=== PATIENT | female | born 1940 | race Caucasian/White ===

== ENCOUNTER 2018-11-04 10:03 | Observation (INO) | payer OTHER ==
--- OUTSIDE RECORDS SUMMARY | 2018-11-04 11:01 | XMS REPORT | Clinical Summary ---
:1940 Author Organization [facility] Address [address] [place] [address] Care Team Providers Name Role Phone Kayden Costa MD Primary Care Provider Allergies Active Allergy Reactions Severity Noted Date Comments Adhesive Other (See Comments) 02/26/2016 Latex tape caused blisters Clindamycin Other (See Comments), Low 02/26/2016 Flushing and chills Rash Erythromycin Nausea And Vomiting, Low 02/26/2016 Vomited blood Other (See Comments), Rash Erythromycin Base 02/26/2016 vomited blood many years ago Latex Other (See Comments) Medium 02/26/2016 Other reaction(s): Blister Blisters with prolonged exposure Lincomycin 02/26/2016 Chills and redness on face. Tetracycline GI Intolerance High 02/26/2016 Tetracycline Hcl GI Bleeding 02/26/2016 Tetracyclines Hives, Other (See 02/26/2016 Joint swelling, rashes Comments), Swelling Medications Medication Sig Dispensed Refills Start Date End Date Status calcium carbonate Take 600 Units 0 Active (OS-DOROTHEA) 600 mg (1,500 by mouth. mg) tablet celecoxib (CeleBREX) 200 TAKE 1 CAPSULE 0 08/14/2014 Active MG capsule DAILY esomeprazole (NexIUM) 40 Take 40 mg by 0 09/20/2014 Active MG capsule mouth. eszopiclone (LUNESTA) 3 Take one tab by 0 03/21/2014 Active mg tablet mouth nightly hydroxychloroquine TAKE 1 TABLET 0 12/18/2014 Active (PLAQUENIL) 200 mg tablet TWICE A DAY levothyroxine (SYNTHROID, Take 100 mcg by 0 12/14/2013 Active LEVOTHROID) 100 MCG mouth. tablet mirabegron (MYRBETRIQ) 50 Take by mouth. 0 Active mg tablet extended release 24 hr traMADol (ULTRAM) 50 mg Take 50-100 mg 0 06/09/2013 Active tablet by mouth. calcium carbonate-vitamin Take 1 capsule 0 Active D3 1,000 mg(2,500 mg)-800 by mouth. unit tablet peg 400-propylene glycol Use one drop in 1.5 mL 2 02/26/2016 Active (SYSTANE, PROPYLENE the morning GLYCOL,) 0.4-0.3 % drops both eyes and as needed for dryness diclofenac (VOLTAREN) 1 % Apply topically 5 Tube 1 03/27/2016 Active gel 4 (four) times a day. Apply to affected area Active Problems Problem Noted Date Hip pain 03/27/2016 Family History Medical History Relation Name Comments Anesthesia problems Brother Cancer Father Cancer Mother Diabetes Mother Osteoporosis Mother Relation Name Status Comments Brother Father Mother Social History Tobacco Use Types Packs/Day Years Used Date Never Smoker Alcohol Use Drinks/Week oz/Week Comments Yes 7 Glasses of wine Sex Assigned at Date Recorded Not on file Job Start Date Occupation Industry Not on file Not on file Not on file Travel History Travel Start Travel End No recent travel history available. Last Filed Vital Signs Not on file Plan of Treatment Health Maintenance Due Date Last Done Comments SHINGLES VACCINES (#1) 1992 65+ PNEUMOCOCCAL VACCINE (2 of 2 - 2007 04/06/2012 PPSV23) INFLUENZA VACCINE 02/04/2019 04/06/2014, 03/19/2014, 04/06/2013, Additional history exists PNEUMOCOCCAL POLYSACCHARIDE VACCINE Completed 04/06/2012 AGE 65 AND OVER Results Not on fileafter 11/03/2017 Insurance Payer Benefit Plan / Group Subscriber ID Type Phone Address A[employer]NA MEDICARE AETNA MEDICARE HMO/PPO [facility] xxxxxxxx HMO Advance Directives Patient has advance care planning documents on file. For more information, please contact:[place] [address]
--- OUTSIDE RECORDS SUMMARY | 2018-11-04 11:01 | XMS REPORT | Clinical Summary ---
:1940 Author Organization [facility] Address [address] [place] [address] Care Team Providers Name Role Phone Julissa, Kayden Jacobs Primary Care Provider Allergies Active Allergy Reactions Severity Noted Date Comments Adhesive Other (See Comments) 11/23/2013 Latex tape caused blisters Clindamycin Rash, Other (See Low 11/23/2013 Other reaction(s): Other Comments) (See Comments) Flushing and chills Erythromycin Nausea And Vomiting, Low 11/23/2013 Other reaction(s): Other Rash, Other (See (See Comments) Comments) Vomited blood Latex Other (See Comments) 11/23/2013 Blisters with prolonged exposure Lincomycin 02/26/2016 Chills and redness on face. Tetracyclines Hives, Swelling, Other 11/23/2013 Joint swelling, rashes (See Comments) Medications Medication Sig Dispensed Refills Start Date End Date Status esomeprazole Take 40 mg by 0 Active (NEXIUM) 40 MG mouth daily. capsule levothyroxine Take 100 mcg by 0 Active (SYNTHROID, mouth daily. LEVOTHROID) 100 MCG tablet eszopiclone Take 1.5 mg by 0 Active (LUNESTA) 3 mg mouth every tablet night as needed. Take immediately before bedtime traMADol (ULTRAM) Take 50 mg by 0 Active 50 mg tablet mouth every 6 (six) hours as needed for Pain. CALCIUM Take 1 capsule 0 Active CARBONATE/VITAMIN by mouth 2 (two) D3 (CALCIUM 600 + times daily. D,3, ORAL) ANTIOX Take by mouth. 0 Active #8/OM3/DHA/EPA/LUT/ ZEAX (PRESERVISION AREDS 2, OMEGA-3, ORAL) celecoxib Take 200 mg by 0 Active (CELEBREX) 200 MG mouth every 12 capsule (twelve) hours as needed for Pain. mirabegron Take 1 tablet 30 tablet 2 10/08/2018 Active (MYRBETRIQ) 50 mg (50 mg total) by 9 Tb24 ER tablet mouth daily for 90 days. mirabegron Take by mouth 0 Discontinued (MYRBETRIQ) 50 mg daily. 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 Last Filed Vital Signs Vital Sign Reading Time Taken Blood Pressure 130/72 09/24/2018 11:25 AM CDT Pulse 70 09/24/2018 11:25 AM CDT Temperature 36.3 C (97.4 F) 09/24/2018 11:25 AM CDT Respiratory Rate - - Oxygen Saturation - - Inhaled Oxygen Concentration - - Weight 62.9 kg (138 lb 9.6 oz) 09/24/2018 11:25 AM CDT Height 166.4 cm (5' 5.5") 09/24/2018 11:25 AM CDT Body Mass Index 22.71 09/24/2018 11:25 AM CDT Plan of Treatment Date Type Specialty Care Team Description 11/23/2018 Office Visit Urology Mika Hines MD [address] [place] [address] [phone] Implants Implanted Type Area Barrel Cap Setter Device Shelf Model / Serial / Identifier Expiration Lot Date Ndl Inj Bulk Coaptite 1ml 890-300 - [id number] Cement/John N/A: [employer] 04/22/2020 890-300 / Implanted: Qty: 2 on 09/24/2017 by Mika Hines MD ler/Adhesi Urethra SCI:UROLOGY/GY [id number] / ve NECOLOGY [id number] Mammary Pros,Memorygel Smooth Round High Prof 350cc - [id number] Plastics Left: MENTOR LEON 06/28/2018 [id number] / Implanted: Qty: 1 on 11/26/2013 by Travis Bah MD Breast [id number] / [id number] Procedures Procedure Name Priority Date/Time Associated Comments Diagnosis URINE CULTURE, Routine 09/25/2018 2:41 Results for this ROUTINE PM CDT procedure are in the results section. MICROSCOPIC Routine 09/25/2018 2:41 Results for this EXAMINATION PM CDT procedure are in the results section. UA/M W/RFLX CULTURE, Routine 09/25/2018 2:41 Results for this ROUT PM CDT procedure are in the results section. after 11/03/2017 Results MICROSCOPIC EXAMINATION (09/25/2018 2:41 PM CDT) WBC >30 (A) 0 - 5 /hpf [facility] 1 RBC 3-10 (A) 0 - 2 /hpf [facility] 1 Epithelial Cells (non renal) 0-10 0 - 10 /hpf [facility] 1 Casts Present (A) None seen /lpf [facility] 1 Cast Type Hyaline casts N/A [facility] 1 Mucus Threads Present Not Estab. [facility] 1 Bacteria Few None seen/ [facility] 1 Specimen Narrative Performed At Performed at:01 - [facility] [address] [place], [id number] Billet Header: Nestor Fernandez MD, Phone:[phone] Performing Organization Address City/State/Zipcode Phone Number [facility] URINE CULTURE, ROUTINE (09/25/2018 2:41 PM CDT) Urine Culture, Routine Final report [facility] 1 Result 1 No growth [facility] 1 Specimen Narrative Performed At Performed at:01 - [facility] [address] [place], [id number] Billet Header: Nestor Fernandez MD, Phone:[phone] Performing Organization Address [facility] Phone Number [facility] UA/M W/RFLX CULTURE, ROUT (09/25/2018 2:41 PM CDT) Specific [place], UA 1.013 1.005 - 1.03 [facility] 1 pH, UA 6.0 5.0 - 7.5 [facility] 1 Color, UA Yellow Yellow [facility] 1 Appearance Clear Clear [facility] 1 WBC Esterase 3+ (A) Negative [facility] 1 Protein, UA Negative Negative/T [facility] 1 Glucose, Urine Negative Negative [facility] 1 Ketones, UA Negative Negative [facility] 1 Blood, UA Negative Negative [facility] 1 Bilirubin, UA Negative Negative [facility] 1 Urobilinogen,Semi-Qn 0.2 0.2 - 1.0 mg/dL [facility] 1 Nitrite, UA Negative Negative [facility] 1 Microscopic Examination See below:Comment: Microscopic [facility] 1 was indicated and was performed. Urinalysis Reflex CommentComment: This specimen [facility] 1 has reflexed to a Urine Culture. Specimen Narrative Performed At Performed at:[facility] [address] [place], [id number] Billet Header: Nestor Fernandez MD, Phone:[phone] Performing Organization Address [facility] Phone Number [facility] 1 after 11/03/2017 Insurance Payer Benefit Plan / Group Subscriber ID Type Phone Address HUMANA - MEDICARE MGD HUMANA MEDICARE ADV xxxxxxxxx Maps Contracted CARE
[2018-11-04] MEDS ORDERED: ALBUTEROL 2.5 MG/3 ML NEB SOL IH PRN (11:25)
[2018-11-04] MEDS ORDERED: NACHLORIDE 0.45% 1,000 ML IV SCH (12:00)
[2018-11-04] MEDS ORDERED: ONDANSETRON 4 MG/2 ML VIAL IV PRN (12:00)
[2018-11-04] MEDS ORDERED: ONDANSETRON 4 MG (ODT) TAB PO PRN (12:00)
[2018-11-04] MEDS ORDERED: LOPERAMIDE HCL 2 MG CAPSULE PO PRN (12:00)
[2018-11-04] MEDS ORDERED: DIPHENHYDRAMINE 25 MG TAB/CAP PO PRN (12:00)
[2018-11-04] MEDS ORDERED: POLYETHYL GLY 3350 17 GM/DOSE PO PRN (12:00)
[2018-11-04] MEDS ORDERED: ACETAMINOPHEN 325 MG TABLET PO PRN (12:00)
[2018-11-04 12:13] LABS: Absolute Lymphocytes (CBC) 1.7 K/uL (0.7-4.9); Absolute Monocytes 0.4 K/uL (0.1-1.3); Absolute Neutrophil 1.6 K/uL (1.8-8.0); Basophils % 0.1 % (0-1.3); Hematocrit 37.1 % (36.0-45.0); Lymphocytes % 46.7 % (15.3-44.8); Monocytes % 10.1 % (3.3-12.3); RBC Red Blood Cell Count 4.09 M/uL (3.86-4.86)
[2018-11-04 12:18] LABS: Protime INR 1.05
[2018-11-04] MEDS: PIPER/TAZO/NS 3.375gm 3.375 GM/100 ML BAG IV SCH ×2 (12:52→17:17)
[2018-11-04 12:53] LABS: Albumin 3.5 g/dL (3.4-5.0); Bilirubin Direct 0.2 mg/dL (0-0.2); Bilirubin Total 0.7 mg/dL (0.2-1.0); Blood Morphology Comment NOT SEEN (NOT SEEN); Magnesium 2.2 mg/dL (1.8-2.4); Phosphorus 3.5 mg/dL (2.5-4.9); Platelet Estimate ADEQ; Potassium 4.4 mmol/L (3.5-5.1); Protein, Total 6.9 g/dL (6.4-8.2); Thyroid Stimulating Hormone 0.164 uIU/mL (0.360-3.740)
[2018-11-04 13:08] LABS: Urine Appearance CLOUDY; Urine Bilirubin NEGATIVE (NEG); Urine Blood NEGATIVE (NEG); Urine Color YELLOW; Urine Glucose NEGATIVE (NEG); Urine Protein NEGATIVE (NEG); Urine Urobilinogen 0.2 mg/dL (0.2-1.0); Urine pH 6.5 (5.0-7.0)
[2018-11-04 13:16] LABS: Urine Microscopic Reflex ORDER UMIC
[2018-11-04 13:44] LABS: Urine Bacteria 20-50 /HPF (<20); Urine Culture Reflex Order NOT NEEDED; Urine RBC <5 /HPF (NONE SEEN)
[2018-11-04] MEDS: IPRATROPIUM BROM 0.5MG/2.5ML IH SCH ×2 (14:20→20:40)
[2018-11-04] MEDS: LEVALBUTEROL 1.25 MG/3 ML NEB IH SCH ×2 (14:20→20:40)
--- NOTE | 2018-11-04 14:51 | RAD REPORT ---
EXAM DESCRIPTION: RAD - Chest Pa And Lat (2 Views) - 11/04/2018 2:44 pm CLINICAL HISTORY: Bronchitis, pneumonia COMPARISON: June 2014 TECHNIQUE: PA and lateral views of the chest were obtained. FINDINGS: The lungs are normal volume. Interstitial pattern is similar to comparison with no focal m ass, infiltrate or failure finding. Right hemidiaphragm elevation has not changed. Trachea is midline . Heart size is normal and central vasculature is within normal limits. No pleural effusion or pne umothorax seen. No acute bony finding noted. No aortic abnormality. IMPRESSION: No acute cardiopulmonary process. Chest findings are not clearly different from compari son.
--- NOTE | 2018-11-04 14:56 | RAD REPORT ---
EXAM DESCRIPTION: CT - Thorax W/ Con - 11/04/2018 2:34 pm CLINICAL HISTORY: Respiratory infection, possible TB COMPARISON: Chest films same date, chest exam April 2016 TECHNIQUE: Dynamically enhanced 5 mm thick images of the chest were obtained during administration o f 100 mL non-ionic IV contrast. All CT scans are performed using dose optimization technique as appropriate and may include automated exposure control or mA/KV adjustment according to patient size. FINDINGS: Scattered areas of sub pleural scarring seen. No consolidation or mass. A few small scatte red areas of nodularity are present. In the anterior right lung field (image 31/61) a 4 millimeter no dule is present. No Ghon complex or other focal lung parenchymal process that would raise suspicion f or tuberculosis. No pleural thickening or pleural effusion. No pneumothorax. No chest wall mass or ab normal axillary lymphadenopathy. No abnormal mediastinal or hilar mass or lymphadenopathy seen. No pericardial thickening or effusion. Breast implant is present on the left. No acute bone finding. IMPRESSION: Patient has minimal scarring changes and nodularity in the breast as detailed. No findin gs to suspect current or prior TB infection.
--- NOTE | 2018-11-04 16:49 | EKG ---
Test Date: 2018-11-04 Test Time: 11:49:31 Concreting Supervisor: NOLAN MEASUREMENT RESULTS: Intervals: Rate: 71 OR: 162 QRSD: 94 QT: 406 QTc: 441 Manti: P: 49 OR: 162 QRS: 40 T: 74 INTERPRETIVE STATEMENTS: Normal sinus rhythm Nonspecific T wave abnormality Abnormal ECG Compared to ECG 04/17/2016 13:46:14 Possible ischemia no longer present T-wave abnormality still present Electronically Signed On 11-04-18 16:48:53 CDT by Kashmir Willosn
[2018-11-04 17:46] LABS: MPV 8.3 fL (7.6-11.3)
[2018-11-04 19:53] LABS: Platelet Estimate ADEQ
[2018-11-04] MEDS ORDERED: TRAMADOL HCL 50 MG TAB PO PRN (20:30)
[2018-11-04] MEDS ORDERED: GABAPENTIN 100 MG CAP PO SCH (21:00)
[2018-11-04] MEDS: HYDROXYCHLOROQUINE 200MG TAB PO SCH (21:00)
[2018-11-05] MEDS: PIPER/TAZO/NS 3.375gm 3.375 GM/100 ML BAG IV SCH ×2 (01:04→08:20)
[2018-11-05] MEDS: LEVALBUTEROL 1.25 MG/3 ML NEB IH SCH ×3 (02:15→14:18)
[2018-11-05] MEDS: IPRATROPIUM BROM 0.5MG/2.5ML IH SCH ×3 (02:15→14:18)
[2018-11-05 04:51] LABS: Absolute Lymphocytes (CBC) 1.4 K/uL (0.7-4.9); Absolute Monocytes 0.4 K/uL (0.1-1.3); Absolute Neutrophil 1.9 K/uL (1.8-8.0); Basophils % 0.3 % (0-1.3); Hematocrit 34.9 % (36.0-45.0); Lymphocytes % 37.9 % (15.3-44.8); RBC Red Blood Cell Count 3.82 M/uL (3.86-4.86)
[2018-11-05 05:05] LABS: Magnesium 2.3 mg/dL (1.8-2.4); Potassium 4.1 mmol/L (3.5-5.1)
[2018-11-05] MEDS: LEVOTHYROXINE SOD 0.1 MG TAB PO SCH ×2 (06:06→06:30)
[2018-11-05] MEDS ORDERED: LEVOTHYROXINE SOD 0.088 MG TAB PO SCH (07:00)
[2018-11-05] MEDS: HYDROXYCHLOROQUINE 200MG TAB PO SCH (08:18)
[2018-11-05] MEDS ORDERED: ENOXAPARIN 40 MG/0.4 ML SQ SCH (09:00)
[2018-11-05] MEDS ORDERED: MIRABEGRON 50 MG PO SCH (09:00)
[2018-11-05] MEDS ORDERED: PANTOPRAZOLE 40MG TABLET PO SCH (09:00)
--- NOTE | 2018-11-05 10:59 | RAD REPORT ---
EXAM DESCRIPTION: CT - Sinus Wo Cont - 11/05/2018 10:33 am CLINICAL HISTORY: Sinus infection, postnasal drip COMPARISON: None. TECHNIQUE: Axial 3 millimeter thick images of the paranasal sinuses were obtained with sagittal and coronal reformatted images generated and reviewed. The CT scan was performed using dose optimization techniques as appropriate to a performed exam incl uding one or more of the following: Automated exposure control, adjustment of the mA and/or kV accord ing to patient size (this includes techniques or standardized protocols for targeted exams where dose is matched to indication/reason for exam) and use of iterative reconstruction technique. FINDINGS: Left side mastoid air cells are clear. Left middle here clear as well. There is partial op acification of the right-sided mastoid air cells with an air-fluid level. The middle ear is normally aerated. Patient has patchy mucosal thickening in the frontal sinuses and ethmoid air cells. Minimal mucosal thickening in the posterior right side sphenoid sinus. Maxillary sinuses are clear. No sclero tic or expansile bony change. Patient has right deviation of the nasal septum. Left middle terminate ella bullosa normal variant is seen. No acute or destructive bone process. No globe or orbital content abnormality seen. Intracranial port ion the exam is grossly normal. Patient has an enlarged right jugular bulb is a normal variant. No ca rotid dehiscence. No nasopharyngeal mass. IMPRESSION: Mild to moderate mucosal thickening changes in the ethmoid air cells with minimal fronta l sinus mucosal thickening and minimal right sphenoid sinus mucosal thickening. Maxillary sinuses are clear. No air-fluid levels present.
--- NOTE | 2018-11-05 18:21 | P.DS ---
Admission Date: 11/04/18 Discharge Date: 11/05/18 Disposition: ROUTINE DISCHARGE Brief History of Present Illness: RUTH FAILED TO RECOVER ON AUGMENTIN AND LEVAQIN. SHE IS BETTER WITH ZOSYN AND NEBS. CT SCAN SHOWS NO PNEUMONIA. SHE IS STABLE TO MS. HER SINUS CT SCAN SHOWS CHRONIC SINUSITIS. I AM REDOING HER ABX, WITH STEROIDS AND INHALER. SHE MAY NEED ASSISTED PREVENTIVE SINUS THERAPY. Vital Signs/Physical Exam: Temp Pulse Resp BP Pulse Ox 97.9 F 77 16 126/51 L 97 11/05/18 12:00 11/05/18 12:00 11/05/18 12:00 11/05/18 12:00 11/05/18 12:00 Laboratory Data at Discharge: WBC 3.8 K/uL (4.3-10.9) L 11/05/18 04:40 Hgb 11.7 g/dL (12.0-15.0) L 11/05/18 04:40 Hct 34.9 % (36.0-45.0) L 11/05/18 04:40 Plt Count 145 K/uL (152-406) L 11/05/18 04:40 PT 12.4 SECONDS (9.5-12.5) 11/04/18 11:57 INR 1.05 11/04/18 11:57 APTT 29.1 SECONDS (24.3-36.9) 11/04/18 11:57 Sodium 139 mmol/L (136-145) 11/05/18 04:40 Potassium 4.1 mmol/L (3.5-5.1) 11/05/18 04:40 BUN 17 mg/dL (7-18) 11/05/18 04:40 Creatinine 1.07 mg/dL (0.55-1.3) 11/05/18 04:40 Glucose 108 mg/dL (74-106) H 11/05/18 04:40 Phosphorus 3.5 mg/dL (2.5-4.9) 11/04/18 11:57 Magnesium 2.3 mg/dL (1.8-2.4) 11/05/18 04:40 Total Bilirubin 0.7 mg/dL (0.2-1.0) 11/04/18 11:57 AST 31 U/L (15-37) 11/04/18 11:57 ALT 26 U/L (12-78) 11/04/18 11:57 Alkaline Phosphatase 69 U/L (45-117) 11/04/18 11:57 Home Medications: Ca/D3/Mag Ox/Zinc/Slag Wheeler/Nikhil/Bor [Calcium 600+D3 Plus Caplet] 1 each PO BID Celecoxib [Celebrex] 200 mg PO DAILY 04/17/16 Esomeprazole Mag Trihydrate [Nexium] 40 mg PO DAILY 04/17/16 Estradiol [Estrace] 1 dose VG EVERY 7TH DAY 04/17/16 Hydroxychloroquine [Plaquenil] 200 mg PO BID 04/17/16 Levothyroxine [Synthroid] 100 mcg PO DAILY 04/17/16 Mybetrig 50 mg PO DAILY 04/17/16 Tramadol HCl [Ultram] 50 mg PO Q6HP PRN 04/17/16 Gabapentin [Neurontin] 100 mg PO BEDTIME 11/04/18 Vitamin B Complex [B-Complex Vitamin] 1 cap PO DAILY 11/04/18 Albuterol Sulfate [Proair Hfa] 8.5 gm IH QID #1 hfa.aer.ad 11/05/18 Amox/Clavulanate [Augmentin 875-125 Tab] 875 mg PO BID #28 tab 11/05/18 Methylprednisolone [Medrol dosepack] 4 mg PO DIRECTED #1 nahum 11/05/18 New Medications: Albuterol Sulfate [Proair Hfa] 8.5 gm IH QID #1 hfa.aer.ad Amox/Clavulanate [Augmentin 875-125 Tab] 875 mg PO BID #28 tab Methylprednisolone [Medrol dosepack] 4 mg PO DIRECTED #1 nahum Followup: Kayden Costa MD [Primary Care Provider] -
[2018-11-11] MEDS ORDERED: ESTRADIOL VG SCH (09:00)
== END 2018-11-05 14:51 | disposition home or self-care (01) ==
LOC: INTOOBSV 10:40 → 4TH 10:40
PROVIDERS: ADMIT Internal Medicine; ATTEND Internal Medicine
DX: J18.9 Pneumonia, unspecified organism (principal); J42 Unspecified chronic bronchitis; M19.90 Unspecified osteoarthritis, unspecified site; M32.9 Systemic lupus erythematosus, unspecified; J32.9 Chronic sinusitis, unspecified
CPT/HCPCS: 93005; 87088; 85025 ×2; 87086; 80048 ×2; 36415 ×2; 83735 ×2; 84100; 85049; 85610; 80076; 85730; 84443; 82607; 82306; 70486; 71260; 71046; 94640; Q9967; J2543; 81003; 81015; G0378; G0379; J1650

== ENCOUNTER 2019-04-08 06:26 | Day surgery (SDC) | payer OTHER ==
[2019-04-08] MEDS ORDERED: Ringers Lactate 1,000 ML IV ONE (06:52)
[2019-04-08] MEDS ORDERED: NA CHLORIDE 0.9% 1,000 ML ONE (07:00)
[2019-04-08] MEDS ORDERED: LIDOCAINE 1% W/EPI 1:100,000 MDV 20 ML VIAL ONE (07:00)
[2019-04-08] MEDS ORDERED: NS 0.9% VIAL 20 ML ONE (07:00)
[2019-04-08] MEDS ORDERED: FENTANYL CITR 100 MCG/2 ML ONE (07:09)
[2019-04-08] MEDS ORDERED: PROPOFOL 200 MG/20 ML VIAL IV ONE (07:09)
[2019-04-08] MEDS ORDERED: LIDOCAINE 2% MPF 5 ML VIAL ONE (07:10)
[2019-04-08] MEDS ORDERED: MIDAZOLAM HCL 2 MG/2 ML INJ ONE (07:10)
[2019-04-08] MEDS ORDERED: ONDANSETRON 4 MG/2 ML VIAL ONE (07:48)
[2019-04-08] MEDS ORDERED: dexAMETHasone 4 MG/ML VIAL ONE (07:48)
[2019-04-08] MEDS ORDERED: NS 0.9% VIAL 10 ML ONE (07:59)
[2019-04-08] MEDS ORDERED: CEFAZOLIN SODIUM 1 GM/VIAL ONE (07:59)
[2019-04-08] MEDS: BOTU TOX TYPE A 100 UNIT/VIAL ID ONE ×2 (08:08→08:09)
[2019-04-08 09:40] VITALS: BP 140/61; TEMP 97.7; O2SAT 99
--- NOTE | 2019-04-09 19:00 | OP ---
Date of Procedure: 04/08/2019 Surgeon: Selma Aranda MD Radiosonde Specialist: No phlebotomist lab assistant. Preoperative Diagnosis: Refractory overactive bladder. Postoperative Diagnosis: Refractory overactive bladder. Procedures Performed: Cystoscopy and injection with Botox 100 units on Botulinum toxin A was rhianna blair. Anesthesia: General with LMA. Patient preferred to have this over MAC. Specimens: No specimens. Complications: No complications. Estimated Blood Loss: Minimal. Condition: The patient's condition is stable. Findings: Bladder unremarkable. Cystourethroscopy was performed. Indications: The patient is a 78-year-old with refractory overactive bladder, history of stress urin jamir incontinence, treated with bulking agents, however, that is not chief complaint. 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 Her infection has been treated and test of cure was negative a month ago, but recently whe n she came for her preop, urine was collected again. The patient was asymptomatic without any new lo wer urinary tract symptoms, except her baseline. She has still had E coli in her urine, however, sin ce she was asymptomatic, this was considered to be an asymptomatic infection, treated with fosfomycin 3 g 3 days ago and then, her urine cultures were reviewed. She had E coli, sensitive to nitrofurant oin. So, as a preventive measure, she was given Macrobid 100 mg daily and then today 1 g of Ancef wa s given prior to the procedure and the injection was carried. The patient has had longstanding histo ry of asymptomatic bacteriuria as well. Description Of Procedure: After informed consent was verified, she was taken back to OR. After anti biotics were given, time-out was done. The patient was placed in a dorsal lithotomy position careful ly due to her joint replacement. Then, prep was performed in the usual fashion. The vulva, vagina, and perineum were draped in the usual fashion and a 23-Sinhala sheath was used for performing cystosco py with a 30-degree lens. Bladder was filled moderately and 100 units of Botox diluted in 10 cc of n ormal saline was taken and the needle with a needle depth of 4 mm was used for injections. 3 rows of 7 injections were given above the level of the trigone, active 0.5, and then t he other injections were with the saline, so injection needle line would be flu shed. After all the 21 injections were given, bladder was drained, refilled with normal saline, and visualized. There was very minimal bleeding and full cystoscopy negative. The bladder was then drai jabier. The patient was recovered from anesthesia, taken to PACU in stable condition. EBL minimal. In strument, needle, and sponge counts were correct. She will follow up with me in 5 days for a voiding trial and 10 days for postop. EDWIGE/ELEONORA Voice ID: [id number] Report ID: [id number]
== END 2019-04-08 10:20 | disposition home or self-care (01) ==
LOC: OR 06:26
PROVIDERS: ATTEND Obstetrics & Gynecology
PROC: 3E0K8GC Introduction of Other Therapeutic Substance into Genitourinary Tract, Via Natural or Artificial Opening Endoscopic (ICD-10-PCS; principal; 2019-04-08 07:30)
DX: N32.81 Overactive bladder (principal); N95.2 Postmenopausal atrophic vaginitis; E03.9 Hypothyroidism, unspecified; M32.9 Systemic lupus erythematosus, unspecified; R12 Heartburn; Z85.3 Personal history of malignant neoplasm of breast; Z86.73 Personal history of transient ischemic attack (TIA), and cerebral infarction without residual deficits; Z90.12 Acquired absence of left breast and nipple; Z90.710 Acquired absence of both cervix and uterus; Z80.0 Family history of malignant neoplasm of digestive organs; Z80.41 Family history of malignant neoplasm of ovary; Z82.3 Family history of stroke; Z83.3 Family history of diabetes mellitus; Z82.49 Family history of ischemic heart disease and other diseases of the circulatory system
CPT/HCPCS: 52287; J2704; J0585; J3010; J7120; J7030; J2405; J0690; J2250

== ENCOUNTER 2021-05-09 20:38 | Emergency (ER) | payer OTHER ==
--- NOTE | 2021-05-09 21:29 | RAD REPORT ---
EXAM DESCRIPTION: CT - CTHCSPWOC - 05/09/2021 9:14 pm CLINICAL HISTORY: Trauma, head and neck injury. PAIN COMPARISON: Sinus Wo Cont dated 11/05/2018 TECHNIQUE: Axial 5 mm thick images of the head were obtained. Axial 2 mm thick images of the cervical spine were obtained with sagittal and coronal reconstruction images generated and reviewed. All CT scans are performed using dose optimization technique as appropriate and may include automated exposure control or mA/KV adjustment according to patient size. FINDINGS: CT HEAD WITHOUT CONTRAST: No acute hemorrhage, hydrocephalus or extra-axial collection is identified.No areas of brain edema or midline shift. Chronic small vessel ischemic changes. Right forehead hematoma. Right mastoid effusion with some coalescence. This may be postoperative. It was present on the CT fro m 11/05/2018 . . Mild ethmoid air cell thickening on the left side.The calvarium is intact. CT CERVICAL SPINE WITHOUT CONTRAST: No fracture or subluxation.Multilevel cervical spondylosis with varying degrees of neural foraminal n arrowing. Suspect mild central spinal stenosis noted C6-7.No prevertebral soft tissues swelling is id entified. IMPRESSION: No acute intracranial or cervical spine findings.
--- NOTE | 2021-05-09 22:04 | RAD REPORT ---
EXAM DESCRIPTION: RAD - Knee Right 3 View - 05/09/2021 9:40 pm CLINICAL HISTORY: PAIN COMPARISON: No comparisons FINDINGS: No acute fracture. No malalignment. No significant focal degenerative changes. IMPRESSION: No acute osseous abnormality involving the right knee.
--- NOTE | 2021-05-09 22:11 | ER ---
Nurse's Notes [facility] Name: Kelli Rodrigues Age: 80 yrs Sex: Female : 1940 Arrival Date: 05/09/2021 Time: 20:44 Bed 23 Private MD: Diagnosis: Fall on same level from slipping, tripping and stumbling without subsequent striking against object;Unspecified injury of head, initial encounter;Abrasion of other part of head;Pain in right knee Presentation: 05/09 20:50 Chief complaint: Patient states: pt states she was leaving latter day and slipped off of mr2 the curb and fell face first into the concrete. denies loc denies blood thinners. rpts striking her forehead and r knee. head pain 04/15 no active bleeding. Coronavirus screen: Vaccine status: Patient reports receiving the 2nd dose of the covid vaccine. Ebola Screen: Patient negative for fever greater than or equal to 101.5 degrees Fahrenheit, and additional compatible Ebola Virus Disease symptoms Patient denies exposure to infectious person. Patient denies travel to an Ebola-affected area in the 21 days before illness onset. Initial Sepsis Screen: Does the patient meet any 2 criteria? No. Patient's initial sepsis screen is negative. Does the patient have a suspected source of infection? No. Patient's initial sepsis screen is negative. 20:50 Method Of Arrival: Ambulatory mr2 20:50 Risk Assessment: Do you want to hurt yourself or someone else? Patient reports no mr2 desire to harm self or others. Onset of symptoms was May 09, 2021. 20:50 Acuity: TEETEE 3 mr2 Triage Assessment: 20:55 General: Appears in no apparent distress. well groomed, well developed, Behavior is mr2 calm, cooperative. Pain: Complains of pain in forehead. Historical: - Allergies: 20:55 No Known Allergies; mr2 - Home Meds: 20:55 Celebrex 50 mg Oral cap [Active]; Nexium 20 mg Oral cpDR [Active]; Synthroid 100 mcg mr2 Oral tab 1 tab once daily [Active]; hydroxychloroquine 200 mg oral tab 1 tab once daily [Active]; - Immunization history:: Adult Immunizations up to date. - Social history:: Smoking status: Patient denies any tobacco usage or history of. Screenin:25 Abuse screen: Denies threats or abuse. Denies injuries from another. Nutritional lh3 screening: No deficits noted. Tuberculosis screening: No symptoms or risk factors identified. Fall Risk None identified. Fall in past 12 months (25 points). Assessment: 21:25 General: Appears in no apparent distress. Behavior is calm, cooperative, appropriate lh3 for age. Neuro: No deficits noted. Injury Description: Abrasion sustained to right side of forehead. Vital Signs: 20:50 BP 141 / 78; Pulse 78; Resp 18; Temp 97.9; mr2 20:50 Pulse Ox 98% on R/A; Weight 61.23 kg; Height 5 ft. 6 in. (167.64 cm); Pain 10/10; mr2 20:59 BP 141 / 78; Pulse 78; Resp 18; Temp 97.9; Pulse Ox 98% on R/A; mr2 20:50 Body Mass Index 21.79 (61.23 kg, 167.64 cm) mr2 Wise Coma Score: 21:08 Eye Response: spontaneous(4). Verbal Response: oriented(5). Motor Response: obeys kb commands(6). Total: 15. ED Course: 20:44 Patient arrived in ED. ja2 20:50 [facility] Ferrera [facility]-C [facility]. kb 20:50 Sanjeev Jerome MD is Attending Physician. kb 20:55 Triage completed. mr2 20:55 Arm band placed on. mr2 21:15 CT Head C Spine In Process Unspecified. EDMS 21:18 Jyoti Spencer, RN is Primary Nurse. lh3 21:25 Patient has correct armband on for positive identification. Bed in low position. Call lh3 light in reach. Side rails up X 1. Side rails up X2. 21:25 No provider procedures requiring assistance completed. Inserted. lh3 21:40 Knee Right 3 View XRAY In Process Unspecified. EDMS 22:25 Patient did not have IV access during this emergency room visit. lh3 Administered Medications: No medications were administered Outcome: 22:10 Discharge ordered by . kb 22:25 Discharged to home ambulatory, with family. lh3 22:25 Condition: good 22:25 Discharge instructions given to patient, Instructed on discharge instructions, Demonstrated understanding of instructions, follow-up care. 22:26 Patient left the ED. lh3 Signatures: Dispatcher [employer] EDSuzie Bender, Jyoti Salmeron RN RN lh3 Izzy Downey [facility] Salas Lepe RN RN mr2
--- NOTE | 2021-05-09 22:11 | EDPHYS ---
Physician Documentation [facility] Name: Kelli Rodrigues Age: 80 yrs Sex: Female : 1940 Arrival Date: 05/09/2021 Time: 20:44 Bed 23 Private MD: ED Physician Sanjeev Jerome HPI: 05/09 21:10 This 80 yrs old Female presents to ER via Ambulatory with complaints of Fall kb Injury. 21:10 Details of fall: The patient fell from an upright position, while walking. Onset: The kb symptoms/episode began/occurred just prior to arrival. Associated injuries: The patient sustained injury to the head, abrasion, pain, neck injury, pain, pain with movement, right knee, abrasion, painful injury. Severity of symptoms: At their worst the symptoms were moderate, in the emergency department the symptoms are unchanged. The patient has not experienced similar symptoms in the past. The patient has not recently seen a physician. Pt states she was walking [place] and fell. States it was wet because of all the rain and she had an umbrella instead of the cane that she normally uses. Reports pain to head, neck and right knee from fall. Denies loc. Historical: - Allergies: 20:55 No Known Allergies; mr2 - Home Meds: 20:55 Celebrex 50 mg Oral cap [Active]; Nexium 20 mg Oral cpDR [Active]; Synthroid 100 mcg mr2 Oral tab 1 tab once daily [Active]; hydroxychloroquine 200 mg oral tab 1 tab once daily [Active]; - Immunization history:: Adult Immunizations up to date. - Social history:: Smoking status: Patient denies any tobacco usage or history of. ROS: 21:08 Constitutional: Negative for fever, chills, and weight loss. kb 21:08 Neck: Positive for pain with movement, pain at rest. 21:08 MS/extremity: Positive for abrasion, pain, of the right knee. 21:08 Skin: Positive for abrasion(s), of the forehead. 21:08 Neuro: Positive for headache. 21:08 All other systems are negative. Exam: 21:09 Constitutional: This is a well developed, well nourished patient who is awake, alert, kb and in no acute distress. Head/Face: Normocephalic, atraumatic. Eyes: Pupils equal round and reactive to light, extra-ocular motions intact. Lids and lashes normal. Conjunctiva and sclera are non-icteric and not injected. Cornea within normal limits. Periorbital areas with no swelling, redness, or edema. ENT: Moist Mucous membranes Neck: Trachea midline, no thyromegaly or masses palpated, and no cervical lymphadenopathy. Supple, full range of motion without nuchal rigidity, or vertebral point tenderness. No Meningismus. Cardiovascular: Regular rate and rhythm with a normal S1 and S2. No gallops, murmurs, or rubs. No pulse deficits. Respiratory: Respirations even and unlabored. No increased work of breathing, no retractions or nasal flaring. Neuro: Awake and alert, GCS 15, oriented to person, place, time, and situation. Moves all extremities. Normal gait. Psych: Awake, alert, with orientation to person, place and time. Behavior, mood, and affect are within normal limits. 21:09 Head/face: Noted is no obvious of injury or deformity except abrasion(s). 21:09 Musculoskeletal/extremity: Extremities: grossly normal except: noted in the right knee: abrasion, pain, ROM: intact in all extremities, Circulation is intact in all extremities. Sensation intact. Weight bearing: able to fully bear weight. 21:09 Skin: injury, abrasion(s), moderate sized abrasion noted, of the right side of forehead. Vital Signs: 20:50 BP 141 / 78; Pulse 78; Resp 18; Temp 97.9; mr2 20:50 Pulse Ox 98% on R/A; Weight 61.23 kg; Height 5 ft. 6 in. (167.64 cm); Pain 10/10; mr2 20:59 BP 141 / 78; Pulse 78; Resp 18; Temp 97.9; Pulse Ox 98% on R/A; mr2 20:50 Body Mass Index 21.79 (61.23 kg, 167.64 cm) mr2 Rocio Coma Score: 21:08 Eye Response: spontaneous(4). Verbal Response: oriented(5). Motor Response: obeys kb commands(6). Total: 15. MDM: 21:02 Patient medically screened. kb 21:08 Data reviewed: vital signs, nurses notes. Data interpreted: Pulse oximetry: on room air kb is 98 %. Interpretation: normal. 22:08 Counseling: I had a detailed discussion with the patient and/or guardian regarding: the kb historical points, exam findings, and any diagnostic results supporting the discharge/admit diagnosis, radiology results, the need for outpatient follow up, a family practitioner, to return to the emergency department if symptoms worsen or persist or if there are any questions or concerns that arise at home. 05/09 21:01 Order name: CT Head C Spine; Complete Time: 21:44 kb 05/09 21:06 Order name: Knee Right 3 View XRAY; Complete Time: 22:08 kb Administered Medications: No medications were administered Disposition: 05/10 00:27 Co-signature as Attending Physician, Sanjeev Jerome MD. [email or web address] Disposition Summary: 05/09/21 22:10 Discharge Ordered Location: Home kb Condition: Stable kb Diagnosis - Fall on same level from slipping, tripping and stumbling without subsequent kb striking against object - Unspecified injury of head, initial encounter kb - Abrasion of other part of head kb - Pain in right knee kb Followup: kb - With: Emergency Department - When: As needed - Reason: Worsening of condition Followup: kb - With: Private Physician - When: 2 - 3 days - Reason: Recheck today's complaints, Continuance of care, Re-evaluation by your physician Discharge Instructions: - Discharge Summary Sheet kb - Musculoskeletal Pain kb - Abrasion, [id number] kb - Head Injury, Adult, [id number] kb Forms: - Medication Reconciliation Form kb - Thank You Letter kb - Antibiotic Education kb - Prescription Opioid Use kb Signatures: Dispatcher [employer] EDSuzie Bender, SALES AND MARKETING REPRESENTATIVE-C SALES AND MARKETING REPRESENTATIVE-Sanjeev Chatterjee MD MD pkl Reynard, Mike, RN RN mr2
[2021-05-09 22:51] VITALS: BP 141/78; TEMP 97.9; O2SAT 98
== END 2021-05-09 22:26 | disposition home or self-care (01) ==
LOC: ER 20:38
DX: S00.81XA Abrasion of other part of head, initial encounter (principal); M25.561 Pain in right knee; W01.198A Fall on same level from slipping, tripping and stumbling with subsequent striking against other object, initial encounter; Y92.22 Religious institution as the place of occurrence of the external cause
CPT/HCPCS: 70450; 72125; 99283